=== PATIENT | male | born 1955 | race Caucasian/White ===

== ENCOUNTER 2017-06-30 09:08 | Observation (INO) | payer BC ==
[2017-06-30] MEDS ORDERED: ADENOSINE 60 MG/20 ML VIAL ONE (09:33)
[2017-06-30 11:25] LABS: Troponin I Less than 0.010 ng/mL (< 0.028)
--- NOTE | 2017-06-30 12:36 | HP ---
PRIMARY CARE PHYSICIAN: Barbie Cruz D.O. CHIEF COMPLAINT: Chest pain. HISTORY OF PRESENT ILLNESS: Mr. Barron is a pleasant 62-year-old gentleman, who has a history of co ronary artery disease. He has had multiple stents placed and had a 3-vessel CABG back [place] [address] Boo. He says that at the time when he had the bypass surgery, he actually had no symptoms and it was found incidentally when he had a cardiac catheterization done, it sounds like for a preop evalua tion. Prior to that with his stents, he did have some chest pain before. Today, he says early this morning around 2:20 a.m., he woke up with a fairly severe pain in his chest. He describes it as just the pain, he cannot say whether it is sharp or not. He says it was primarily in the center of his c hest and it was nonradiating. His says it appears that he was short of breath, although he did not feel short of breath. He took one nitroglycerin and it did not help. He has not had chest pain since his stents placed years ago and he is generally fairly stoic and when his noted that he wa s taking the nitroglycerin, they felt they better come to the hospital. They went to the [facility] [place] where he was given another nitroglycerin and aspirin without relief. He was given 2 m g of morphine, still no relief, another 2 mg and then followed by 6 mg and then he said the pain slow ly started to efrain. He still has a little bit of pain currently. He had no nausea, no diaphoresis and there was no radiation to the pain. He says that he is fairly sedentary and as a result cannot t ell whether or not exertion brings on pain in the past. REVIEW OF SYSTEMS: Constitutional: There have been no fevers or chills, no night sweats, no weight loss. HEENT: No headache, no dizziness, no visual changes, no sore throat, rhinorrhea, neck pain, n o adenopathy. Pulmonary: He has had a dry cough off and on, which has been nonproductive. No hemop tysis, no dyspnea. Cardiovascular: As the history of present illness. Gastrointestinal: No abdomi nal pain, no nausea, no vomiting, no reflux symptoms. Genitourinary: No urinary frequency, hematuri a, no hesitancy. Neurologic: No focal weakness, numbness, no seizures. Psychiatric: No symptoms o f anxiety or depression. Skin/Integument: No skin changes. No rash. PAST MEDICAL HISTORY: Significant for coronary artery disease, status post bypass; paroxysmal atrial fibrillation; hypertension; hypercholesterolemia; osteoarthritis of his hands and hips. PAST SURGICAL HISTORY: He has had a 3-vessel bypass, appendectomy and stents placed. ALLERGIES: He says he does not have any true allergies to medications, but has a bad reaction to MUKUL SED, DEMEROL, and CODEINE, but he does have an allergy to SHELLFISH. SOCIAL HISTORY: He is . He is a former smoker. He occasionally drinks. FAMILY HISTORY: Significant for heart disease on both sides of his family. CURRENT MEDICATIONS: Include amlodipine 5 mg daily, aspirin 325 mg daily, bupropion XL 300 mg daily, lisinopril/hydrochlorothiazide 20/25 one daily, meloxicam 7.5 mg daily, Toprol-XL 25 mg daily, Nitro stat 0.4 sublingual p.r.n., Crestor 40 mg daily, and tramadol 50 mg q.8 hours as needed. PHYSICAL EXAMINATION: GENERAL: He is alert and oriented. He appears to be in no acute distress. VITAL SIGNS: Blood pressure was 159/69, heart rate 55, respiratory rate of 24, temperature is not re corded. HEENT: Pupils are equal, round, and reactive. Extraocular muscles are intact. Sclerae are anicteri c. Throat: No erythema, no exudates. NECK: No adenopathy. He did have a bruit on the right carotid. LUNGS: Clear to auscultation. There was no wheezing, no rales. CARDIOVASCULAR: He has a normal S1, S2. I do not appreciate an S3 or S4. No murmurs, clicks or rub s. ABDOMEN: Soft, obese, it is nontender, nondistended. Positive for bowel sounds. No rebound, no gua rding. EXTREMITIES: There is no edema. NEUROLOGIC: The exam is nonfocal. LABORATORY AND DIAGNOSTIC DATA: Lab results were reviewed from the [facility] and are essentia lly negative. He had 2 sets of troponin, which were negative. He had an abdominal ultrasound, which was pending and chest x-ray was reported as negative. EKG and this was by my reading was sinus trina ycardia. The heart rate is in the 70s and he had some T-wave inversions in II, III, and aVF. ASSESSMENT AND PLAN: This is a pleasant 62-year-old gentleman, who presents to the emergency room wi th complaints of chest pain. He has a known history of coronary artery disease and has essentially b een chest pain free until this morning. This is a bit concerning, and as such, he will be placed in observation. We will get a nuclear stress test and will also consult his manager academic, Dr. Rucker, for further recommendations. In the meantime, we will continue his usual home medications. We will add a nitroglycerin patch as tolerated and continue his beta-kostas and EMILY inhibitor.
[2017-06-30] MEDS ORDERED: Acetaminophen 325 MG TAB PO PRN (12:54)
[2017-06-30] MEDS ORDERED: Mag-Al 1200 mg/1200 mg/30 ML UDCUP PO PRN (12:54)
[2017-06-30] MEDS ORDERED: hydrALAZINE 20 MG/ML VIAL SLOW IVP PRN (12:54)
[2017-06-30] MEDS ORDERED: Milk Of Magnesia 30 ML UDCUP PO PRN (12:54)
[2017-06-30] MEDS ORDERED: Nitroglycerin 0.4 MG TAB (25 Tab Bottle) PO PRN (12:54)
[2017-06-30 12:59] VITALS: BMI 33.4
[2017-06-30 14:00] LABS: Cardiac Risk 3.8 (Less than 4.5)
[2017-06-30] MEDS ORDERED: Nitroglycerin 2% Ointment 1 INCH/1 GM Packet TOP SCH (14:00)
[2017-06-30 14:04] LABS: Troponin I 0.013 ng/mL (< 0.028)
[2017-06-30 15:52] VITALS: TEMP 99.8
[2017-06-30 16:53] VITALS: BP 164/73
[2017-06-30 16:59] LABS: Troponin I 0.017 ng/mL (< 0.028)
--- NOTE | 2017-06-30 17:55 | NM ---
NUCLEAR MEDICINE MYOCARDIAL PERFUSION EVALUATION: CLINICAL HISTORY: 62-year-old male with chest pain. FINDINGS: Stress nuclear medicine imaging exam performed which reveals homogeneous uptake of the left ventricul ar wall without significant perfusion defect identified. Calculated LVEF is 65%. Gated imaging reveal s wall motion and contractility of the left ventricular segments. IMPRESSION: 1. No scintigraphic evidence of significant ischemia or scar. 2. Normal left ventricular systolic function. POS: RHONDA
[2017-06-30] MEDS ORDERED: Rosuvastatin 20 MG TAB PO SCH (21:00)
[2017-06-30] MEDS ORDERED: Metoprolol Tartrate 25 MG TAB PO SCH (21:00)
--- NOTE | 2017-07-01 00:02 | DIS ---
DATE OF ADMISSION: 06/30/2017 DATE OF DISCHARGE: 06/30/2017 PRIMARY CARE PHYSICIAN: Dr. Cruz. DISCHARGE DISPOSITION: Home. PRIMARY DISCHARGE DIAGNOSES: 1. Chest pain, probable noncardiac. 2. History of coronary artery disease. 3. Hypertension. 4. Dyslipidemia. DISCHARGE MEDICATIONS: These are the same as that on admission and include Crestor 40 mg daily, Lipi tor 25 mg twice a day, lisinopril/hydrochlorothiazide 1 tablet daily, Plavix 75 mg daily, bupropion 3 00 mg daily, aspirin 325 mg daily, and amlodipine 5 mg daily. PROCEDURES DONE DURING ADMISSION: The patient had a nuclear stress test, which was negative. CODE STATUS: FULL CODE. ALLERGIES: MEPERIDINE, MIDAZOLAM, and SHELLFISH. HOSPITAL COURSE: Mr. Barron is a pleasant 62-year-old gentleman, who presented to the emergency [facility] in [place] with chest pain. He has a history of coronary artery disease, and for this reason, he w as transferred to our facility for further evaluation. He had 3 sets of cardiac enzymes, which were negative and he had a nuclear stress test, which was also negative. There were some atypical aspects of his pain and it is felt to be noncardiac. For this reason, he will be discharged home to have cl ose followup with his primary care physician as well as with Dr. Rucker with the negative stress test a nd negative cardiac enzymes. Again, the pain is unlikely related to coronary artery disease.
[2017-07-01] MEDS ORDERED: Amlodipine 5 MG TAB PO SCH (09:00)
[2017-07-01] MEDS ORDERED: Enoxaparin Sodium 40 MG/0.4 ML SYRINGE SC SCH (09:00)
[2017-07-01] MEDS ORDERED: Aspirin 325 MG TAB PO SCH ×2 (09:00)
[2017-07-01] MEDS ORDERED: Clopidogrel Bisulfate 75 MG TAB PO SCH (09:00)
[2017-07-01] MEDS ORDERED: Bupropion 150 MG XL TAB PO SCH (09:00)
[2017-07-01] MEDS ORDERED: Lisinopril/Hydrochlorothiazide 20/25 mg Tablet PO SCH (09:00)
--- NOTE | 2017-07-05 17:34 | EKG ---
Test Reason : Blood Pressure : / mmHG Vent. Rate : 055 BPM Atrial Rate : 055 BPM P-R Int : 154 ms QRS Dur : 098 ms QT Int : 426 ms P-R-T Axes : 044 013 -53 degrees QTc Int : 407 ms Sinus bradycardia Possible Left atrial enlargement T wave abnormality, consider inferior ischemia Abnormal ECG Confirmed by DEEP MURRAY, LD ([id number]), fan mail editor BEN GOINS ([id number]) on 07/05/2017 5:33:40 PM Referred By: Confirmed By:LD ADAME MD
== END 2017-06-30 18:36 | disposition home or self-care (01) ==
LOC: ERS 09:08 → 2SW 10:37
PROVIDERS: ADMIT Internal Medicine; ATTEND Internal Medicine
DX: R07.9 Chest pain, unspecified (principal); I25.10 Atherosclerotic heart disease of native coronary artery without angina pectoris; I10 Essential (primary) hypertension; E78.5 Hyperlipidemia, unspecified; I48.91 Unspecified atrial fibrillation; E78.00 Pure hypercholesterolemia, unspecified; M16.0 Bilateral primary osteoarthritis of hip; M19.042 Primary osteoarthritis, left hand; M19.041 Primary osteoarthritis, right hand; F32.9 Major depressive disorder, single episode, unspecified; Z87.891 Personal history of nicotine dependence; Z79.02 Long term (current) use of antithrombotics/antiplatelets; Z79.82 Long term (current) use of aspirin; Z79.899 Other long term (current) drug therapy; Z88.5 Allergy status to narcotic agent; Z88.8 Allergy status to other drugs, medicaments and biological substances; Z91.013 Allergy to seafood; Z95.5 Presence of coronary angioplasty implant and graft; Z95.1 Presence of aortocoronary bypass graft; Z90.49 Acquired absence of other specified parts of digestive tract
CPT/HCPCS: 36415; 78452; 80061; 84484; 93005; 93017; 94760; A9500; G0378; J0153